=== PATIENT | male | born 1965 | race Asian ===

== ENCOUNTER 2022-05-05 15:07 | Outpatient (REF) | payer OTHER, SELFPAY ==
[2022-05-05 16:31] LABS: MANUAL DIFF FLAG NO
[2022-05-05 16:34] LABS: Basophils Absolute Auto 0.1 X10*3/uL (0.0-0.2); Basophils Percent Auto 0.7 % (0-2); Eosinophils Absolute Auto 0.1 X10*3/uL (0.0-0.4); Eosinophils Percent Auto 0.5 % (0-4); Hematocrit 39.8 % (42.0-52.0); Hemoglobin 13.2 g/dl (14.0-18.0); Imm Gran Abs Auto 0.09 X10*3/uL (0.00-0.03); Imm Gran Pct Auto 0.8 % (0.0-0.4); Lymphocytes Absolute Auto 2.4 X10*3/uL (1.2-4.9); Mean Corpuscular HGB Conc 33.2 g/dl (31.0-36.0); Mean Corpuscular Hemoglobin 28.8 pg (27.0-33.0); Mean Corpuscular Volume 86.9 fL (80.0-98.0); Mean Platelet Volume 8.2 fL (9.4-12.4); Monocytes Absolute Auto 0.8 X10*3/uL (0.1-1.2); Platelet Count 460 X10*3/uL (160-400); Red Blood Count 4.58 X10*6/uL (4.60-5.80); Red Cell Distribution Width 13.1 % (11.0-16.0); White Blood Count 11.5 X10*3/uL (4.8-10.8)
[2022-05-05 16:45] LABS: Appearance Urine Clear; Color Urine Yellow; Glucose Urine UA Negative (Negative); Leukocyte Esterase Urine Negative (Negative); Nitrite Urine Negative (Negative); Specific Gravity - Urine <= 1.005 (1.005-1.025); Urine Blood Negative (Negative); Urine Ketones Negative (Negative); Urine Protein Negative (Neg-Trace)
[2022-05-05 16:48] LABS: Bacteria Urine None Seen (None Seen); Hyaline Casts Urine 0-2 /LPF (0-2); RBC Urine 0-2 /HPF (0-2); Squamous Epithelial Cell Urine 0-2 /HPF (0-2); WBC Urine 0-5 /HPF (0-5)
[2022-05-05 16:48] LABS: Alanine Aminotransferase 27 U/L (0-40); Albumin Level 4.2 g/dL (3.5-5.0); Alkaline Phosphatase 112 U/L (39-117); Anion Gap 17 (12-20); Aspartate Amino Transferase 18 U/L (5-37); Bilirubin Total 0.4 mg/dL (0.0-1.0); Blood Urea Nitrogen 16 mg/dL (9-16); Calcium 9.3 mg/dL (8.4-10.2); Carbon Dioxide 24 mmol/L (22-29); Chloride 96 mmol/L (96-108); Cholesterol 163 mg/dL; Estimated Glomerular Filt Rate > 60; Glucose Fasting 85 mg/dL (60-99); HDL Cholesterol 39 mg/dL; LDL Cholesterol Calculated 101 mg/dl; Potassium 4.5 mmol/L (3.3-5.1); Sodium 132 mmol/L (135-145); Total Protein 7.8 g/dL (6.5-8.0); Triglycerides 119 mg/dL
[2022-05-05 17:08] LABS: PSA,Total (Free>4and<10) 0.83 ng/mL (0.00-4.00)
== END 2022-05-05 15:08 | disposition home or self-care (01) ==
LOC: HO.HMGCLDS 15:07
PROVIDERS: PCP Internal Medicine; Visit Provider Internal Medicine
DX: Z12.5 Encounter for screening for malignant neoplasm of prostate (principal); I10 Essential (primary) hypertension
CPT/HCPCS: 36415; 80053; 80061; 81001; 84153; 85025

== ENCOUNTER 2022-06-03 15:14 | Outpatient (REF) | payer OTHER, SELFPAY ==
[2022-06-03 16:20] LABS: MANUAL DIFF FLAG NO
[2022-06-03 16:25] LABS: Basophils Absolute Auto 0.1 X10*3/uL (0.0-0.2); Basophils Percent Auto 0.7 % (0-2); Eosinophils Absolute Auto 0.1 X10*3/uL (0.0-0.4); Eosinophils Percent Auto 0.5 % (0-4); Hematocrit 41.3 % (42.0-52.0); Hemoglobin 13.7 g/dl (14.0-18.0); Imm Gran Abs Auto 0.05 X10*3/uL (0.00-0.03); Imm Gran Pct Auto 0.5 % (0.0-0.4); Lymphocytes Percent Auto 20.4 % (20-40); Mean Corpuscular HGB Conc 33.2 g/dl (31.0-36.0); Mean Corpuscular Hemoglobin 28.2 pg (27.0-33.0); Mean Corpuscular Volume 85.2 fL (80.0-98.0); Mean Platelet Volume 8.3 fL (9.4-12.4); Monocytes Absolute Auto 0.5 X10*3/uL (0.1-1.2); Monocytes Percent Auto 4.9 % (2-11); Neutrophils Absolute Auto 7.2 x10*3/uL (2.0-8.3); Platelet Count 387 X10*3/uL (160-400); Red Blood Count 4.85 X10*6/uL (4.60-5.80); Red Cell Distribution Width 13.6 % (11.0-16.0); White Blood Count 9.9 X10*3/uL (4.8-10.8)
[2022-06-03 16:42] LABS: Anion Gap 18 (12-20); Blood Urea Nitrogen 29 mg/dL (9-16); Calcium 9.5 mg/dL (8.4-10.2); Carbon Dioxide 22 mmol/L (22-29); Chloride 98 mmol/L (96-108); Estimated Glomerular Filt Rate 57; Glucose Random 103 mg/dL (60-115); Iron 101 mcg/dL (45-160); Percent Iron Saturation 23 % (15-50); Potassium 4.1 mmol/L (3.3-5.1); Sodium 134 mmol/L (135-145); Total Iron Binding Capacity 431 mcg/dL (228-428); Unsaturated Iron Binding 330 ug/dL
[2022-06-03 17:16] LABS: Folate 9.7 ng/mL (> or = 4.0); Vitamin B12 403 pg/mL (200-900)
== END 2022-06-03 15:15 | disposition home or self-care (01) ==
LOC: HO.HMGCLDS 15:14
PROVIDERS: PCP Internal Medicine; Visit Provider Internal Medicine
DX: I10 Essential (primary) hypertension (principal); D64.9 Anemia, unspecified
CPT/HCPCS: 36415; 80048; 82607; 82746; 83540; 85025

== ENCOUNTER 2022-10-14 09:00 | Outpatient (REF) | payer OTHER, SELFPAY | END 2022-10-14 09:01 | disposition home or self-care (01) | LOC: HO.HMGCLDS 09:00 | PROVIDERS: PCP Internal Medicine; Visit Provider Internal Medicine | DX: Z13.89 Encounter for screening for other disorder (principal) ==

== ENCOUNTER 2023-10-20 13:24 | Outpatient (AMB) | payer OTHER, SELFPAY ==
--- NOTE | 2023-10-20 13:28 | A.OFFPC_ITS ---
Vital Signs 10/20/23 13:30 Height 6 ft Weight 208 lb BMI 28.2 BP 120/80 Blood Pressure Location Rt brachial Position Sitting Pulse 83 Pulse Source Pulse Oximeter Pulse Oximetry (%) 98 Oxygen Delivery Method Room Air Intake Visit Reasons: PE Intake Note: Pt is here today for his PE: Lasdt colonoscopy 08/25/22 Allergies No Known Allergies Allergy (Verified 10/20/23 13:29) Medication List - Last Reconciled 10/20/23 by Alla Sorto MD amlodipine 2.5 mg PO DAILY amlodipine 5 mg PO DAILY 90 days clobetasol 0.05% 1 appl topical DAILY mirtazapine 30 mg PO DAILY omeprazole 40 mg PO DAILY Tobacco use date assessed: 10/20/23 Dental Screening Dental Screen Date: 10/20/23 Did you have a dental visit in the last 12 months?: No Was dental information given to patient?: No HPI PE HPI Details Patient presents for PE. He started Humira last month for mild diffuse colitis and follows up with the statistician applied Dr. Jerez. [facility] Medical History (Updated 10/20/23 @ 14:13 by Alla Sorto MD) HTN (hypertension) Difficulty sleeping Depression, major, recurrent Acne vulgaris LFT elevation Hypertension, essential Ulcerative colitis Surgical History No pertinent past surgical history Family History Father Alzheimer's disease Dementia Stroke Mother No problems noted. Sister No problems noted. 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 1. Little interest or pleasure in doing things: not at all 2. Feeling down, depressed, or hopeless: not at all 3. Trouble falling or staying asleep, or sleeping too much: not at all 4. Feeling tired or having little energy: not at all 5. Poor appetite or overeating: not at all 6. Feeling bad about yourself - or that you are a failure or have let yourself or your family down: not at all 7. Trouble concentrating on things, such as reading the newspaper or watching television: not at all 8. Moving or speaking so slowly that other people could have noticed. Or the opposite - being so fidgety or restless that you have been moving around a lot more than usual: not at all 9. Thoughts that you would be better off or of hurting yourself in some way: not at all Total score: 0 Source: Developed by Drs. Gerry Cabrales, Lexy Meade, Bob Yun and colleagues, with an educational flavia from [email or web address]. Thrive Questionnaire Date Thrive assessed: 10/20/23 I am a: Patient What is your living situation today?: I have a steady place to live Within the past 12 months, did the food you bought not last and you didn't have the money to get more?: Never true Within the past 12 months, did you worry whether your food would run out before you got money to buy more?: Never true Do you have trouble paying for medicines?: No Do you have trouble getting transportation to medical appointments?: No Do you have trouble paying your heating and electricity bill?: No Do you have trouble taking care of your child, family member or friend?: No Do you have trouble with day-to-day activities such as bathing, preparing meals, shopping, managing finances, etc.?: No Are you currently unemployed and looking for a job?: No Are you interested in more education?: No THRIVE Score: 0 AUDIT C Alcohol Use Questionnaire (AUDIT-C) 1. How often do you have a drink containing alcohol?: 2-4 times a month 2. How many drinks containing alcohol do you have on a typical day when you are drinking?: 1 or 2 3. How often do you have six or more drinks on one occasion?: Never Total Score: 2 PILI-7 AMB Questionnaire PILI-7 Date PILI - 7 assessed: 10/20/23 Feeling nervous, anxious, or on edge: 0 = Not at all Not being able to stop or control worryin = Not at all Worrying too much about different things: 0 = Not at all Trouble relaxin = Not at all Being so restless that it is hard to sit still: 0 = Not at all Becoming easily annoyed or irritable: 0 = Not at all Feeling afraid as if something awful might happen: 0 = Not at all Total PILI-7 score (0-4 normal; 5-9 mild; 10-14 moderate; 15-21 severe): 0 Source: Developed by Drs. Gerry Cabrales, Lexy Meade, Bob Yun and colleagues, with an educational flavia from [email or web address]. Review of Systems Const All systems reviewed & are unremarkable except as noted in HPI and below Reports no additional complaints Eyes Reports no additional complaints ENT Reports no additional complaints Card Reports no additional complaints Resp Reports no additional complaints GI Reports no additional complaints Reports no additional complaints Physical exam (Primary Care) Vital Signs: Last Vital Signs Pulse 83 10/20/23 13:30 BP 142/80 H 10/20/23 13:30 Pulse Ox 98 10/20/23 13:30 Oxygen Delivery Method Room Air 10/20/23 13:30 BMI result Body Mass Index 28.2 Tobacco/Smoking Status: Tobacco use Status Tobacco use date assessed 10/20/23 10/20/23 13:33 Patient Tobacco Use Status Never used Tobacco 10/20/23 13:33 e-Cigarette/Vaping Use Never Used 10/20/23 13:33 PHQ-9: PHQ-9 Score PHQ-9: Total score 0 10/20/23 13:37 Thrive Assessment: Date of Thrive Assessment Date Thrive assessed 10/20/23 10/20/23 13:37 Const General: no acute distress HENMT Head: Yes normal to inspection General nose exam: Normal external nose present Mouth: Normal oral and palatal mucosa present Eyes General: appearance normal, both eyes and all related structures Neck Neck: Yes no lymphadenopathy and Yes supple Resp Effort & Inspection: normal respiratory effort Auscultation: clear to auscultation bilaterally Cardio Rhythm: regular rhythm Heart sounds: S1 normal heart sound present and S2 normal heart sound present GI Inspection: Yes normal to inspection Palpation (GI): Soft to palpation Percussion: Yes normal to percussion Auscultation: normal bowel sounds Assessment and Plan Assessment & Plan (1) HTN (hypertension): Code(s): I10 - Essential (primary) hypertension Plan: Continue amlodipine (2) Annual physical exam: Code(s): Z00.00 - Encounter for general adult medical examination without abnormal findings Plan: Well-balanced diet regular physical activity discussed with the patient. He will return for fasting blood work (3) Depression, major, recurrent: Comment: controlled Mirtazapine Code(s): F33.9 - Major depressive disorder, recurrent, unspecified Plan: Continue mirtazapine (4) Bilateral chronic knee pain: Comment: seen by [facility] Code(s): M25.561 - Pain in right knee; M25.562 - Pain in left knee; G89.29 - Other chronic pain Plan: REFER FOR PHYSICAL THERAPY (5) Ulcerative colitis: Comment: Dr. Jerez, colonoscopy 08/2022, mild diffuse colitis started Humira 09/24 Code(s): K51.90 - Ulcerative colitis, unspecified, without complications Plan: Follow-up with GI Orders: Orders Comprehensive [place]. Panel Fast Today F33.9 - Major depressive disorder, recurrent, unspecified, I10 - Essential (primary) hypertension, Z00.00 - Encounter for general adult medical examination without abnormal findings PSA,Total (Free>4and<10) Today F33.9 - Major depressive disorder, recurrent, unspecified, I10 - Essential (primary) hypertension, Z00.00 - Encounter for general adult medical examination without abnormal findings UA w Microscopic Today F33.9 - Major depressive disorder, recurrent, unspecified, I10 - Essential (primary) hypertension, Z00.00 - Encounter for general adult medical examination without abnormal findings PSA,Total (Free>4and<10) 1 Year D64.9 - Anemia, unspecified, I10 - Essential (primary) hypertension, K51.90 - Ulcerative colitis, unspecified, without complications, Z00.00 - Encounter for general adult medical examination without abnormal findings Complete Blood Count Auto Diff Today F33.9 - Major depressive disorder, recurrent, unspecified, I10 - Essential (primary) hypertension, Z00.00 - Encounter for general adult medical examination without abnormal findings Lipid Panel Today F33.9 - Major depressive disorder, recurrent, unspecified, I10 - Essential (primary) hypertension, Z00.00 - Encounter for general adult medical examination without abnormal findings PT Evaluation and Treatment Today G89.29 - Other chronic pain, M25.561 - Pain in right knee, M25.562 - Pain in left knee Comprehensive [place]. Panel Fast 1 Year D64.9 - Anemia, unspecified, I10 - Essential (primary) hypertension, K51.90 - Ulcerative colitis, unspecified, without complications, Z00.00 - Encounter for general adult medical examination without abnormal findings Lipid Panel 1 Year D64.9 - Anemia, unspecified, I10 - Essential (primary) hypertension, K51.90 - Ulcerative colitis, unspecified, without complications, Z00.00 - Encounter for general adult medical examination without abnormal findings Complete Blood Count Auto Diff 1 Year D64.9 - Anemia, unspecified, I10 - Essential (primary) hypertension, K51.90 - Ulcerative colitis, unspecified, without complications, Z00.00 - Encounter for general adult medical examination without abnormal findings UA w Microscopic 1 Year D64.9 - Anemia, unspecified, I10 - Essential (primary) hypertension, K51.90 - Ulcerative colitis, unspecified, without complications, Z00.00 - Encounter for general adult medical examination without abnormal findings Medications: Changed From mirtazapine 15 mg (1/2 x 30 mg) PO DAILY 45 tabs 3RF To mirtazapine 30 mg PO DAILY 90 tabs 3RF Refilled omeprazole 40 mg PO DAILY 90 caps 3RF amlodipine take with 5 mg of Amlodipine 2.5 mg PO DAILY 90 tabs 3RF Coding Level of Care Code Est Pt Prev Care 40-64y(22362) Diagnoses HTN (hypertension) I10 Annual physical exam Z00.00 Depression, major, recurrent F33.9 Bilateral chronic knee pain M25.561; M25.562; G89.29 Ulcerative colitis K51.90
[2023-10-20 13:30] VITALS: BP 120/80; PULSE 83; O2SAT 98; BMI 28.2
== END 2023-10-20 14:13 | disposition home or self-care (01) ==
PROVIDERS: PCP Internal Medicine; Visit Provider Internal Medicine
DX: Z00.00 Encounter for general adult medical examination without abnormal findings (principal); F33.9 Major depressive disorder, recurrent, unspecified; K51.90 Ulcerative colitis, unspecified, without complications; I10 Essential (primary) hypertension; M25.561 Pain in right knee; M25.562 Pain in left knee; G89.29 Other chronic pain
CPT/HCPCS: 99396

== ENCOUNTER 2024-02-20 10:47 | Outpatient (REF) | payer OTHER, SELFPAY ==
[2024-02-20 13:10] LABS: MANUAL DIFF FLAG NO
[2024-02-20 13:18] LABS: Appearance Urine Clear; Color Urine Yellow; Glucose Urine UA Negative (Negative); Leukocyte Esterase Urine Negative (Negative); Nitrite Urine Negative (Negative); PH 6.5 (5.0-9.0); Specific Gravity - Urine 1.015 (1.005-1.025); Urine Blood Negative (Negative); Urine Ketones Negative (Negative); Urine Protein Negative (Neg-Trace)
[2024-02-20 13:25] LABS: Bacteria Urine None Seen (None Seen); Hyaline Casts Urine 0-2 /LPF (0-2); RBC Urine 0-2 /HPF (0-2); Squamous Epithelial Cell Urine 0-2 /HPF (0-2); WBC Urine 0-5 /HPF (0-5)
[2024-02-20 13:29] LABS: Basophils Absolute Auto 0.1 X10*3/uL (0.0-0.2); Eosinophils Absolute Auto 0.1 X10*3/uL (0.0-0.4); Hematocrit 40.4 % (42.0-52.0); Hemoglobin 13.9 g/dl (14.0-18.0); Imm Gran Abs Auto 0.02 X10*3/uL (0.00-0.03); Imm Gran Pct Auto 0.4 % (0.0-0.4); Lymphocytes Absolute Auto 1.6 X10*3/uL (1.2-4.9); Lymphocytes Percent Auto 31.8 % (20-40); Mean Corpuscular HGB Conc 34.4 g/dl (31.0-36.0); Mean Corpuscular Hemoglobin 28.6 pg (27.0-33.0); Mean Corpuscular Volume 83.1 fL (80.0-98.0); Mean Platelet Volume 8.7 fL (9.4-12.4); Monocytes Absolute Auto 0.5 X10*3/uL (0.1-1.2); Monocytes Percent Auto 9.1 % (2-11); Neutrophils Absolute Auto 2.8 x10*3/uL (2.0-8.3); Neutrophils Percent Auto 56.7 % (45-73); Platelet Count 386 X10*3/uL (160-400); Red Blood Count 4.86 X10*6/uL (4.60-5.80); Red Cell Distribution Width 14.7 % (11.0-16.0); White Blood Count 4.9 X10*3/uL (4.8-10.8)
[2024-02-20 13:51] LABS: Alanine Aminotransferase 73 U/L (0-40); Albumin Level 4.4 g/dL (3.5-5.0); Alkaline Phosphatase 94 U/L (39-117); Anion Gap 14 (12-20); Aspartate Amino Transferase 39 U/L (5-37); Bilirubin Total 0.4 mg/dL (0.0-1.0); Blood Urea Nitrogen 12 mg/dL (9-16); Carbon Dioxide 21 mmol/L (22-29); Chloride 100 mmol/L (96-108); Cholesterol 179 mg/dL (<200); Estimated Glomerular Filt Rate > 60; Glucose Fasting 103 mg/dL (60-99); HDL Cholesterol 45 mg/dL (>40); LDL Cholesterol Calculated 85 mg/dL (<100); Potassium 4.5 mmol/L (3.3-5.1); Sodium 130 mmol/L (135-145); Total Protein 7.8 g/dL (6.5-8.0); Triglycerides 245 mg/dL (<150)
[2024-02-20 13:56] LABS: PSA,Total (Free>4and<10) 0.92 ng/mL (0.00-4.00)
== END 2024-02-20 10:48 | disposition home or self-care (01) ==
LOC: HO.HMGCLDS 10:47
PROVIDERS: PCP Internal Medicine; Visit Provider Internal Medicine
DX: Z00.00 Encounter for general adult medical examination without abnormal findings (principal); I10 Essential (primary) hypertension; F33.9 Major depressive disorder, recurrent, unspecified
CPT/HCPCS: 36415; 80053; 80061; 81001; 84153; 85025

== ENCOUNTER 2024-02-23 13:57 | Outpatient (AMB) | payer OTHER, SELFPAY ==
--- NOTE | 2024-02-23 14:26 | MHC.PC.OV ---
Vital Signs 02/23/24 14:27 Height 6 ft Weight 210 lb BMI 28.5 BP 136/88 Blood Pressure Location Rt radial Position Sitting Pulse 91 Pulse Source Pulse Oximeter Pulse Oximetry (%) 95 Oxygen Delivery Method Room Air Intake Visit Reasons: followup Intake Note: Pt is here today for a follow up visit. Pt states that he has low energy. Allergies No Known Allergies Allergy (Verified 02/23/24 14:29) Medication List - Last Reconciled 02/23/24 by Alla Sorto MD amlodipine 2.5 mg PO DAILY amlodipine 5 mg PO DAILY 90 days clobetasol 0.05% 1 appl topical DAILY mirtazapine 30 mg PO DAILY omeprazole 40 mg PO DAILY Tobacco use date assessed: 02/23/24 Dental Screening Dental Screen Date: 02/23/24 Did you have a dental visit in the last 12 months?: Yes Did you have a dental problem in the last 6 months where you did not have access to dental care?: No Was dental information given to patient?: Patient has dentist HPI followup HPI Details Pt presents for f/u HTN. Patient reports feeling tired but worse when exercising. He can not exercise for more than 20 minutes because of general fatigue and legs heaviness. He denies chest pain, shortness of breath, palpitations while exercising but occasionally has some discomfort in the chest at rest. Patient has not been using CPAP machine for obstructive sleep apnea, [facility] Medical History (Updated 02/23/24 @ 15:32 by Alla Sorto MD) HTN (hypertension) Difficulty sleeping Depression, major, recurrent Acne vulgaris LFT elevation Hypertension, essential Ulcerative colitis Surgical History No pertinent past surgical history Family History Father Alzheimer's disease Dementia Stroke Mother No problems noted. Sister No problems noted. 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, Housing: Apartment Alcohol intake: current Alcohol intake frequency: a few times a week Patient Tobacco Use Status: Never used Tobacco e-Cigarette/Vaping Use: Never Used service: No Current occupational status: employed Cognitive needs: No Hearing needs: No Vision needs: Yes Questionnaire Thrive Questionnaire Date Thrive assessed: 10/20/23 I am a: Patient What is your living situation today?: I choose not to answer this question Within the past 12 months, did the food you bought not last and you didn't have the money to get more?: I choose not to answer this question Within the past 12 months, did you worry whether your food would run out before you got money to buy more?: I choose not to answer this question Do you have trouble paying for medicines?: I choose not to answer this question Do you have trouble getting transportation to medical appointments?: I choose not to answer this question Do you have trouble paying your heating and electricity bill?: I choose not to answer this question Do you have trouble taking care of your child, family member or friend?: I choose not to answer this question Do you have trouble with day-to-day activities such as bathing, preparing meals, shopping, managing finances, etc.?: I choose not to answer this question Are you currently unemployed and looking for a job?: I choose not to answer this question Are you interested in more education?: I choose not to answer this question Please select the resources that you would like help with: Housing/Correction Currently or been in a relationship where the following occur: I choose not to answer THRIVE Score: 0 AUDIT C Alcohol Use Questionnaire (AUDIT-C) 1. How often do you have a drink containing alcohol?: Never 3. How often do you have six or more drinks on one occasion?: Never Total Score: 0 PILI-7 AMB Questionnaire PILI-7 Date PILI - 7 assessed: 10/20/23 Feeling nervous, anxious, or on edge: 0 = Not at all Not being able to stop or control worryin = Not at all Worrying too much about different things: 0 = Not at all Trouble relaxin = Not at all Being so restless that it is hard to sit still: 0 = Not at all Becoming easily annoyed or irritable: 0 = Not at all Feeling afraid as if something awful might happen: 0 = Not at all Total PILI-7 score (0-4 normal; 5-9 mild; 10-14 moderate; 15-21 severe): 0 Source: Developed by Rip Duranet B.W. Deshaun, Bob Yun and colleagues, with an educational flavia from [employer]. Review of Systems Const All systems reviewed & are unremarkable except as noted in HPI and below Eyes Reports no additional complaints ENT Reports no additional complaints Card Reports no additional complaints Resp Reports no additional complaints GI Reports no additional complaints Reports no additional complaints Physical exam (Primary Care) Vital Signs: Last Vital Signs Pulse 91 02/23/24 14:27 Pulse Ox 95 02/23/24 14:27 Oxygen Delivery Method Room Air 02/23/24 14:27 BMI result Body Mass Index 28.5 Tobacco/Smoking Status: Tobacco use Status Tobacco use date assessed 02/23/24 02/23/24 14:32 Patient Tobacco Use Status Never used Tobacco 02/23/24 14:32 e-Cigarette/Vaping Use Never Used 02/23/24 14:32 Thrive Assessment: Date of Thrive Assessment Date Thrive assessed 10/20/23 02/23/24 14:32 Currently or been in a relationship where the following occur: I choose not to answer Const General: no acute distress HENMT Head: Yes normal to inspection Eyes General: appearance normal, both eyes and all related structures Resp Effort & Inspection: normal respiratory effort Auscultation: clear to auscultation bilaterally Cardio Rhythm: regular rhythm Heart sounds: S1 normal heart sound present and S2 normal heart sound present GI Inspection: Yes normal to inspection Palpation (GI): Soft to palpation Percussion: Yes normal to percussion Auscultation: normal bowel sounds Assessment and Plan Assessment & Plan (1) Sleep apnea: Code(s): G47.30 - Sleep apnea, unspecified Plan: check sleep study (2) HTN (hypertension): Code(s): I10 - Essential (primary) hypertension Plan: increase Amlodipine to 10 mg (3) Hyponatremia: Code(s): E87.1 - Hypo-osmolality and hyponatremia Plan: Fluid restriction to less than 48 oz daily discussed with the patient, check comprehensive panel in 3 weeks (4) Angina at rest: Code(s): I20.89 - Other forms of angina pectoris Plan: Schedule a stress test to evaluate for ischemia (5) Knee pain, bilateral: Code(s): M25.561 - Pain in right knee; M25.562 - Pain in left knee Plan: Referred to physical therapy Orders: Orders CA stress test Today I10 - Essential (primary) hypertension, I20.89 - Other forms of angina pectoris NM cardiolite stress test Today E87.1 - Hypo-osmolality and hyponatremia, G47.30 - Sleep apnea, unspecified, I10 - Essential (primary) hypertension PT Evaluation and Treatment Today M25.561 - Pain in right knee, M25.562 - Pain in left knee Comprehensive [place]. Panel 1 Month E87.1 - Hypo-osmolality and hyponatremia, G47.30 - Sleep apnea, unspecified, I10 - Essential (primary) hypertension Medications: New amlodipine 10 mg PO DAILY 90 tabs 0RF Discontinued amlodipine take with 5 mg of Amlodipine Discontinued Reason: Doctor's Order 2.5 mg PO DAILY 90 tabs 3RF amlodipine Discontinued Reason: Doctor's Order 5 mg PO DAILY 90 days 90 tabs 3RF I10 - Essential (primary) hypertension Coding Level of Care Code Est Pt Level 4 (16363) Diagnoses Sleep apnea G47.30 HTN (hypertension) I10 Hyponatremia E87.1 Angina at rest I20.89 Knee pain, bilateral M25.561; M25.562
[2024-02-23 14:27] VITALS: BP 136/88; PULSE 91; O2SAT 95; BMI 28.5
== END 2024-02-23 15:37 | disposition home or self-care (01) ==
PROVIDERS: PCP Internal Medicine; Visit Provider Internal Medicine
DX: G47.30 Sleep apnea, unspecified (principal); I10 Essential (primary) hypertension; E87.1 Hypo-osmolality and hyponatremia; I20.89 Other forms of angina pectoris; M25.561 Pain in right knee; M25.562 Pain in left knee
CPT/HCPCS: 99214

== ENCOUNTER 2024-03-16 11:57 | Outpatient (AMB) | payer OTHER, SELFPAY ==
[2024-03-16 12:00] VITALS: BP 132/86; PULSE 84; O2SAT 96; BMI 28.1
--- NOTE | 2024-03-16 12:00 | A.OFFPC_ITS ---
Vital Signs 03/16/24 12:00 Height 6 ft Weight 207 lb 4 oz BMI 28.1 BP 132/86 Blood Pressure Location Rt brachial Position Sitting Pulse 84 Pulse Source Pulse Oximeter Pulse Oximetry (%) 96 Oxygen Delivery Method Room Air Intake Visit Reasons: follow up Allergies No Known Allergies Allergy (Verified 03/16/24 12:04) Medication List - Last Reconciled 03/16/24 by Alla Sorto MD amlodipine 10 mg PO DAILY clobetasol 0.05% 1 appl topical DAILY mirtazapine 30 mg PO DAILY omeprazole 40 mg PO DAILY Tobacco use date assessed: 03/16/24 Dental Screening Dental Screen Date: 03/16/24 Did you have a dental visit in the last 12 months?: No Did you have a dental problem in the last 6 months where you did not have access to dental care?: No Was dental information given to patient?: Patient has dentist HPI follow up HPI Details Patient presents for the follow-up for hypertension chronic GERD anxiety with depression, stable on current medications [facility] Medical History (Updated 03/16/24 @ 12:43 by Alla Sorto MD) HTN (hypertension) Difficulty sleeping Depression, major, recurrent Acne vulgaris LFT elevation Hypertension, essential Ulcerative colitis Surgical History No pertinent past surgical history Family History Father Alzheimer's disease Dementia Stroke Mother No problems noted. Sister No problems noted. 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, Housing: Apartment Alcohol intake: current Alcohol intake frequency: a few times a week Patient Tobacco Use Status: Never used Tobacco e-Cigarette/Vaping Use: Never Used service: No Current occupational status: employed Cognitive needs: No Hearing needs: No Vision needs: Yes Questionnaire Thrive Questionnaire Date Thrive assessed: 03/16/24 I am a: Patient What is your living situation today?: I choose not to answer this question Within the past 12 months, did the food you bought not last and you didn't have the money to get more?: I choose not to answer this question Within the past 12 months, did you worry whether your food would run out before you got money to buy more?: I choose not to answer this question Do you have trouble paying for medicines?: I choose not to answer this question Do you have trouble getting transportation to medical appointments?: I choose not to answer this question Do you have trouble paying your heating and electricity bill?: I choose not to answer this question Do you have trouble taking care of your child, family member or friend?: I choose not to answer this question Do you have trouble with day-to-day activities such as bathing, preparing meals, shopping, managing finances, etc.?: I choose not to answer this question Are you currently unemployed and looking for a job?: I choose not to answer this question Are you interested in more education?: I choose not to answer this question Please select the resources that you would like help with: None Currently or been in a relationship where the following occur: I choose not to answer THRIVE Score: 0 AUDIT C Alcohol Use Questionnaire (AUDIT-C) 1. How often do you have a drink containing alcohol?: Never 3. How often do you have six or more drinks on one occasion?: Never Total Score: 0 Score Reviewed/Action Taken: Yes PILI-7 AMB Questionnaire PILI-7 Date PILI - 7 assessed: 03/16/24 Feeling nervous, anxious, or on edge: 0 = Not at all Not being able to stop or control worryin = Not at all Worrying too much about different things: 0 = Not at all Trouble relaxin = Not at all Being so restless that it is hard to sit still: 0 = Not at all Becoming easily annoyed or irritable: 0 = Not at all Feeling afraid as if something awful might happen: 0 = Not at all Total PILI-7 score (0-4 normal; 5-9 mild; 10-14 moderate; 15-21 severe): 0 Source: Developed by Drs. Gerry Cabrales, Lexy Meade, Bob Yun and colleagues, with an educational flavia from [employer]. PILI-7 Assessment Billing PILI-7 Assessment Tool: PILI-7 Assessment 01568 Review of Systems Const All systems reviewed & are unremarkable except as noted in HPI and below Card Reports no additional complaints Resp Reports no additional complaints GI Reports no additional complaints Reports no additional complaints Physical exam (Primary Care) Vital Signs: Last Vital Signs Pulse 84 03/16/24 12:00 BP 132/86 03/16/24 12:00 Pulse Ox 96 03/16/24 12:00 Oxygen Delivery Method Room Air 03/16/24 12:00 BMI result Body Mass Index 28.1 Tobacco/Smoking Status: Tobacco use Status Tobacco use date assessed 03/16/24 03/16/24 12:04 Patient Tobacco Use Status Never used Tobacco 03/16/24 12:00 e-Cigarette/Vaping Use Never Used 03/16/24 12:00 Thrive Assessment: Date of Thrive Assessment Date Thrive assessed 03/16/24 03/16/24 12:04 Currently or been in a relationship where the following occur: I choose not to answer Const General: no acute distress Eyes General: appearance normal, both eyes and all related structures Resp Effort & Inspection: normal respiratory effort Auscultation: clear to auscultation bilaterally Cardio Rhythm: regular rhythm Heart sounds: S1 normal heart sound present and S2 normal heart sound present Assessment and Plan Assessment & Plan (1) HTN (hypertension): Code(s): I10 - Essential (primary) hypertension Plan: Continue amlodipine (2) Hyponatremia: Comment: SIADH Code(s): E87.1 - Hypo-osmolality and hyponatremia Plan: Continue fluid restriction monitor sodium level (3) Depression, major, recurrent: Comment: controlled Mirtazapine Code(s): F33.9 - Major depressive disorder, recurrent, unspecified Plan: Continue Mirtazapine Orders: Orders Lipid Panel 3 Months E87.1 - Hypo-osmolality and hyponatremia, I10 - Essential (primary) hypertension Comprehensive [place]. Panel Fast 3 Months E87.1 - Hypo-osmolality and hyponatremia, I10 - Essential (primary) hypertension Complete Blood Count Auto Diff 3 Months E87.1 - Hypo-osmolality and hyponatremia, I10 - Essential (primary) hypertension Hepatitis B,C Profile 3 Months E87.1 - Hypo-osmolality and hyponatremia, I10 - Essential (primary) hypertension Coding Level of Care Code Est Pt Level 4 (82942) Diagnoses HTN (hypertension) I10 Hyponatremia E87.1 Depression, major, recurrent F33.9 Additional Codes PILI-7 Assessment Billing - PILI-7 Assessment Tool: PILI-7 Assessment [id number] ([id number])
== END 2024-03-16 12:38 | disposition home or self-care (01) ==
PROVIDERS: PCP Internal Medicine; Visit Provider Internal Medicine
DX: I10 Essential (primary) hypertension (principal); E87.1 Hypo-osmolality and hyponatremia; F33.9 Major depressive disorder, recurrent, unspecified
CPT/HCPCS: 99214

== ENCOUNTER 2024-06-20 11:50 | Outpatient (AMB) | payer OTHER, SELFPAY ==
[2024-06-20 12:02] VITALS: BP 132/84; PULSE 86; O2SAT 97; BMI 29.0
--- NOTE | 2024-06-20 12:02 | A.OFFPC_ITS ---
Vital Signs 06/20/24 12:02 Height 6 ft Weight 214 lb BMI 29.0 BP 132/84 Blood Pressure Location Lt brachial Position Sitting Pulse 86 Pulse Source Pulse Oximeter Pulse Oximetry (%) 97 Intake Visit Reasons: 3 month follow up Intake Note: pt is here for 3 month follow up Dot Compliance Coordinator Required: No Accompanied by: Self / Same As Patient Allergies No Known Allergies Allergy (Verified 06/20/24 12:06) Medication List - Last Reconciled 06/20/24 by Alla Sorto MD amlodipine 10 mg PO DAILY clobetasol 0.05% 1 appl topical DAILY mirtazapine 30 mg PO DAILY omeprazole 40 mg PO DAILY Tobacco use date assessed: 03/16/24 Dental Screening Dental Screen Date: 03/16/24 HPI 3 month follow up HPI Details Patient presents for the follow-up on hypertension chronic GERD and d epression stable on current medications. He complains of chronic right knee pain and likes to reschedule his appointment for physical therapy. [facility] Medical History HTN (hypertension) Difficulty sleeping Depression, major, recurrent Acne vulgaris LFT elevation Hypertension, essential Ulcerative colitis Surgical History No pertinent past surgical history Family History Father Alzheimer's disease Dementia Stroke Mother No problems noted. Sister No problems noted. 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, Housing: Apartment Alcohol intake: current Alcohol intake frequency: a few times a week Patient Tobacco Use Status: Never used Tobacco e-Cigarette/Vaping Use: Never Used service: No Current occupational status: employed Cognitive needs: No Hearing needs: No Vision needs: Yes Questionnaire Thrive Questionnaire Date Thrive assessed: 06/20/24 I am a: Patient What is your living situation today?: I choose not to answer this question Within the past 12 months, did the food you bought not last and you didn't have the money to get more?: I choose not to answer this question Within the past 12 months, did you worry whether your food would run out before you got money to buy more?: I choose not to answer this question Do you have trouble paying for medicines?: I choose not to answer this question Do you have trouble getting transportation to medical appointments?: I choose not to answer this question Do you have trouble paying your heating and electricity bill?: I choose not to answer this question Do you have trouble taking care of your child, family member or friend?: I choose not to answer this question Do you have trouble with day-to-day activities such as bathing, preparing meals, shopping, managing finances, etc.?: I choose not to answer this question Are you currently unemployed and looking for a job?: I choose not to answer this question Are you interested in more education?: I choose not to answer this question Please select the resources that you would like help with: None Currently or been in a relationship where the following occur: I choose not to answer THRIVE Score: 0 PILI-7 AMB Questionnaire PILI-7 Date PILI - 7 assessed: 03/16/24 Source: Developed by Drs. Gerry Cabrales, Lexy Meade, Bob Yun and colleagues, with an educational flavia from [employer]. Review of Systems Const All systems reviewed & are unremarkable except as noted in HPI and below ENT Reports no additional complaints Card Reports no additional complaints Resp Reports no additional complaints GI Reports no additional complaints Reports no additional complaints Physical exam (Primary Care) Vital Signs: Last Vital Signs Pulse 86 06/20/24 12:02 BP 132/84 06/20/24 12:02 Pulse Ox 97 06/20/24 12:02 BMI result Body Mass Index 29.0 Tobacco/Smoking Status: Tobacco use Status Tobacco use date assessed 03/16/24 06/20/24 12:02 Patient Tobacco Use Status Never used Tobacco 06/20/24 12:02 e-Cigarette/Vaping Use Never Used 06/20/24 12:02 Thrive Assessment: Date of Thrive Assessment Date Thrive assessed 06/20/24 06/20/24 12:11 Currently or been in a relationship where the following occur: I choose not to answer Const General: no acute distress HENMT Head: Yes normal to inspection Ears: hearing grossly normal bilaterally Neck Neck: Yes supple Resp Effort & Inspection: normal respiratory effort Auscultation: clear to auscultation bilaterally Cardio Rhythm: regular rhythm Heart sounds: S1 normal heart sound present and S2 normal heart sound present Coding Level of Care Code Est Pt Level 4 (01847) Diagnoses Right knee pain M25.561 Hyponatremia E87.1 HTN (hypertension) I10 Depression, major, recurrent F33.9 Assessment & Plan Assessment & Plan (1) Right knee pain: Code(s): M25.561 - Pain in right knee Category: Medical Plan: refer to PT (2) Hyponatremia: Comment: SIADH Code(s): E87.1 - Hypo-osmolality and hyponatremia Category: Medical Plan: Continue fluid restriction to 48 oz a day patient will return for fasting blood work this week (3) HTN (hypertension): Code(s): I10 - Essential (primary) hypertension Category: Medical Plan: Continue amlodipine (4) Depression, major, recurrent: Comment: controlled Mirtazapine Code(s): F33.9 - Major depressive disorder, recurrent, unspecified Category: Medical Plan: Continue mirtazapine Orders: Orders Comprehensive Met. Panel Today D64.9 - Anemia, unspecified, E87.1 - Hypo- osmolality and hyponatremia, I10 - Essential (primary) hypertension PT Evaluation and Treatment Today M25.561 - Pain in right knee Lipid Panel Today D64.9 - Anemia, unspecified, E87.1 - Hypo-osmolality and hyponatremia, I10 - Essential (primary) hypertension Complete Blood Count Auto Diff Today E87.1 - Hypo-osmolality and hyponatremia, I10 - Essential (primary) hypertension, R79.89 - Other specified abnormal findings of blood chemistry Hepatitis B,C Profile Today E87.1 - Hypo-osmolality and hyponatremia, I10 - Essential (primary) hypertension, R79.89 - Other specified abnormal findings of blood chemistry TSH reflex Free T4 Today E87.1 - Hypo-osmolality and hyponatremia, I10 - Essential (primary) hypertension, R79.89 - Other specified abnormal findings of blood chemistry
== END 2024-06-20 12:46 | disposition home or self-care (01) ==
PROVIDERS: PCP Internal Medicine; Visit Provider Internal Medicine
DX: M25.561 Pain in right knee (principal); E87.1 Hypo-osmolality and hyponatremia; I10 Essential (primary) hypertension; F33.9 Major depressive disorder, recurrent, unspecified

== ENCOUNTER → 2024-06-20 11:50 | Outpatient (BNVA) | payer OTHER, SELFPAY | PROVIDERS: PCP Internal Medicine; Visit Provider Internal Medicine | DX: M25.561 Pain in right knee (principal); E87.1 Hypo-osmolality and hyponatremia; I10 Essential (primary) hypertension; F33.9 Major depressive disorder, recurrent, unspecified | CPT/HCPCS: 99212 ==

== ENCOUNTER 2024-06-29 11:17 | Outpatient (REF) | payer OTHER, SELFPAY ==
[2024-06-29 13:38] LABS: MANUAL DIFF FLAG NO
[2024-06-29 13:46] LABS: Basophils Absolute Auto 0.1 X10*3/uL (0.0-0.2); Basophils Percent Auto 0.8 % (0-2); Eosinophils Absolute Auto 0.1 X10*3/uL (0.0-0.4); Eosinophils Percent Auto 2.3 % (0-4); Hematocrit 39.9 % (42.0-52.0); Hemoglobin 13.6 g/dl (14.0-18.0); Imm Gran Abs Auto 0.04 X10*3/uL (0.00-0.03); Imm Gran Pct Auto 0.7 % (0.0-0.4); Lymphocytes Absolute Auto 2.3 X10*3/uL (1.2-4.9); Mean Corpuscular HGB Conc 34.1 g/dl (31.0-36.0); Mean Corpuscular Hemoglobin 28.2 pg (27.0-33.0); Mean Corpuscular Volume 82.6 fL (80.0-98.0); Mean Platelet Volume 8.4 fL (9.4-12.4); Monocytes Absolute Auto 0.6 X10*3/uL (0.1-1.2); Monocytes Percent Auto 9.7 % (2-11); Neutrophils Percent Auto 49.5 % (45-73); Platelet Count 346 X10*3/uL (160-400); Red Blood Count 4.83 X10*6/uL (4.60-5.80); Red Cell Distribution Width 14.6 % (11.0-16.0); White Blood Count 6.1 X10*3/uL (4.8-10.8)
[2024-06-29 14:15] LABS: Alanine Aminotransferase 134 U/L (0-40); Albumin Level 4.3 g/dL (3.5-5.0); Alkaline Phosphatase 80 U/L (39-117); Anion Gap 15 (12-20); Aspartate Amino Transferase 57 U/L (5-37); Bilirubin Total 0.3 mg/dL (0.0-1.0); Blood Urea Nitrogen 19 mg/dL (9-16); Calcium 8.6 mg/dL (8.4-10.2); Carbon Dioxide 23 mmol/L (22-29); Chloride 102 mmol/L (96-108); Cholesterol 165 mg/dL (<200); Estimated Glomerular Filt Rate > 60; Glucose Random 108 mg/dL (60-115); HDL Cholesterol 49 mg/dL (>40); LDL Cholesterol Calculated 100 mg/dL (<100); Potassium 4.4 mmol/L (3.3-5.1); Sodium 136 mmol/L (135-145); Total Protein 7.7 g/dL (6.5-8.0); Triglycerides 83 mg/dL (<150)
[2024-06-29 14:19] LABS: HBS Num1 0.33 mIU/mL (0-7.99); HBc Num1 0.11 S/CO (0.00-0.79); HBsAGNum1 0.48 S/CO (0.00-0.99); Hepatitis B Core Antibody Nonreactive (Nonreactive); Hepatitis B Surface Antigen Negative (Negative); ~HepC Num1 0.13 S/CO (0.00-0.79); ~Hepatitis B Surface Antibody NONREACTIVE (Nonreactive); ~Hepatitis C Antibody Nonreactive (Nonreactive)
[2024-06-29 14:20] LABS: TSH reflex Free T4 1.34 uIU/mL (0.32-4.0)
== END 2024-06-29 11:18 | disposition home or self-care (01) ==
LOC: HO.HMGCLDS 11:17
PROVIDERS: PCP Internal Medicine; Visit Provider Internal Medicine
DX: E87.1 Hypo-osmolality and hyponatremia (principal); I10 Essential (primary) hypertension; D64.9 Anemia, unspecified; R79.89 Other specified abnormal findings of blood chemistry
CPT/HCPCS: 36415; 80053; 80061; 84443; 85025; 86704; 86706; 86803; 87340

== ENCOUNTER 2024-07-10 10:34 | Outpatient (REF) | payer OTHER, SELFPAY ==
--- NOTE | ~2024-07-10 | US_ITS ---
EXAMINATION: US ABDOMEN LIMITED CLINICAL INFORMATION: Elevated liver function tests. COMPARISON: None available. TECHNIQUE: Real-time imaging of the right upper quadrant abdominal viscera. Limited visualization due to bowel gas. FINDINGS: PANCREAS: Limited visualization of pancreatic tail and head. Imaged portion of pancreatic body is unremarkable. LIVER: Increased hepatic parenchymal heterogeneity and echogenicity could be associated with hepatocellular disease/hepatic steatosis and substantially limits visualization. Hypoechoic areas within the liver adjacent to the gallbladder characteristic of areas of focal sparing. Correlation with liver function tests and clinical exam recommended to determine further management. GALLBLADDER: No gallstones. No gallbladder wall thickening. COMMON BILE DUCT: Normal in caliber measuring 0.4 cm in diameter. RIGHT KIDNEY: No hydronephrosis. No renal calculi. Limited visualization. The kidney measures 11.8 cm in maximum dimension. FREE FLUID: None. US/US abdomen limited IMPRESSION: Increased hepatic parenchymal heterogeneity and echogenicity could be associated with hepatocellular disease/hepatic steatosis and substantially limits visualization. Hypoechoic areas within the liver adjacent to the gallbladder characteristic of areas of focal sparing. Correlation with liver function tests and clinical exam recommended to determine further management. This study was presented today to July 10, 2024 for interpretation. Stat results provided at this time as requested by referring provider. Electronically signed by: Chapis Le MD 07/10/2024 01:13 PM KRISTIE OLIVER
== END 2024-07-10 10:35 | disposition home or self-care (01) ==
LOC: HO.HMGCX 10:34
PROVIDERS: PCP Internal Medicine; Visit Provider Internal Medicine
DX: R79.89 Other specified abnormal findings of blood chemistry (principal)
CPT/HCPCS: 76705

== ENCOUNTER 2024-08-16 11:00 | Outpatient (RCR) | payer OTHER, SELFPAY ==
--- NOTE | 2024-07-30 12:04 | MHC.PT.EP ---
[facility] [place] Office [place] Office [place] Office [address] Domenico Walker [address] [phone] F: [phone] F: [phone] F: [phone] F: [phone] Physical Therapy Plan of Care Date of Evaluation: 07/30/24 Date of Surgery: Diagnosis: B knee pain goes by Flip Assessment: 59 y/o male referred to PT with B knee pain. S/s consistent with patella tendonitis and ?pes anserine bursitis secondary to decreased hip strength, pain at B patella tendon/pes anserine, decreased muscle length of piriformis/ ITB, patella lateral tracking, and impaired squat technique resulting in pain and difficulty with stairs, walking, and running. Recommend PT 2x/week for 4 weeks to address impairments, implement HEP, and optimize functional mobility. Frequency and Duration: The patient will be seen 2x/week for 4 weeks Short Term Goals: 2 weeks I with HEP Pt will demosntrate modified figure four stretch with pain < 3/10 Per Diem Registered Nurse Goals: 4 weeks I with HEP and self management of sx Pt will be able to ascend/ descend stairs in step through pattern with pain < 3/10 Pt will have initiated walking program with pain < 3/10 Treatment Plan: Modalities to reduce pain, spasms and effusion. Manual therapy to restore motion and function. Therapeutic exercise to improve strength and flexibility. Neuromuscular re-education for posture and balance. Therapeutic activities to return to functional activities of daily living. Electronically signed by: Brinda Redman PT Please sign and return to therapist. Thank you for your referral.
--- NOTE | 2024-09-10 13:30 | MHC.PT.DC ---
[facility] [place] Office [place] Office [place] Office [address] Domenico Walker [address] [phone] F: [phone] F: [phone] F: [phone] F: [phone] Physical Therapy Discharge Report Diagnosis: B knee pain goes by Flip Date of Surgery: Date of Evaluation: 07/30/24 Date of Discharge: 09/10/24 Treatments to Date: 4 Cancellations to Date: 3 No Shows to Date: 1 Discharge Status: Improved Function Independent with HEP Visit Non-compliance Discharge Summary: Pt was making gradual improvement and I with HEP at time of last attended visit. He still had not returned to running which was one of his goals. At this time he is d/c secondary cancellations and not f/u with further appointments. Electronically signed by: Brinda Redman PT Please sign and return to therapist. Thank you for your referral.
== END 2024-09-10 13:30 | disposition home or self-care (01) ==
LOC: HO.PTCHIC 11:00
PROVIDERS: PCP Internal Medicine; Visit Provider Internal Medicine
DX: M25.561 Pain in right knee (principal); M25.562 Pain in left knee
CPT/HCPCS: 97110; 97140; 97161

== ENCOUNTER 2025-01-01 11:35 | Outpatient (AMB) | payer OTHER, SELFPAY ==
[2025-01-01 11:53] VITALS: BP 134/80; PULSE 88; RESP 18; TEMP 36.7; O2SAT 98; BMI 28.7
--- NOTE | 2025-01-01 11:53 | MHC.PC.OV ---
Vital Signs 01/01/25 11:53 Height 6 ft Weight 212 lb BMI 28.7 BP 134/80 Blood Pressure Location Lt brachial Position Sitting Respiration 18 Pulse 88 Pulse Source Pulse Oximeter Temp 98.1 F Temp Source Oral Pulse Oximetry (%) 98 Oxygen Delivery Method Room Air Intake Visit Reasons: Med. Review Intake Note: Pt is here today for a follow up visit. Allergies No Known Allergies Allergy (Verified 01/01/25 11:54) Medication List - Last Reconciled 01/01/25 by Alla Sorto MD amlodipine 10 mg PO DAILY clobetasol 0.05% 1 appl topical DAILY mirtazapine 30 mg PO DAILY omeprazole 40 mg PO DAILY vardenafil 20 mg PO DAILY Tobacco use date assessed: 01/01/25 Dental Screening Dental Screen Date: 01/01/25 Did you have a dental visit in the last 12 months?: No Did you have a dental problem in the last 6 months where you did not have access to dental care?: Yes Was dental information given to patient?: Yes HPI Med. Review HPI Details Patient presents for the follow-up. Hypertension is controlled on amlodipine. He complains bilateral elbow pain worse when using his arms. Patient has been working on in the gym, lifting weights daily for the last 2 months. [facility] Medical History (Updated 01/01/25 @ 12:46 by Alla Sorto MD) HTN (hypertension) Difficulty sleeping Depression, major, recurrent Acne vulgaris LFT elevation Hypertension, essential Ulcerative colitis Surgical History No pertinent past surgical history Family History Father Alzheimer's disease Dementia Stroke Mother No problems noted. Sister No problems noted. 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 1. Little interest or pleasure in doing things: not at all 2. Feeling down, depressed, or hopeless: not at all 3. Trouble falling or staying asleep, or sleeping too much: not at all 4. Feeling tired or having little energy: not at all 5. Poor appetite or overeating: not at all 6. Feeling bad about yourself - or that you are a failure or have let yourself or your family down: not at all 7. Trouble concentrating on things, such as reading the newspaper or watching television: not at all 8. Moving or speaking so slowly that other people could have noticed. Or the opposite - being so fidgety or restless that you have been moving around a lot more than usual: not at all 9. Thoughts that you would be better off or of hurting yourself in some way: not at all Total score: 0 Depression Screening Interpretation: Negative Depression Screening Done: Yes 39488 - PHQ-9 Billing: Yes Source: Developed by Drs. Gerry Cabrales, Lexy Meade, Bob Yun and colleagues, with an educational flavia from [employer]. Thrive Questionnaire Date Thrive assessed: 01/01/25 I am a: Patient What is your living situation today?: I choose not to answer this question Within the past 12 months, did the food you bought not last and you didn't have the money to get more?: I choose not to answer this question Within the past 12 months, did you worry whether your food would run out before you got money to buy more?: I choose not to answer this question Do you have trouble paying for medicines?: I choose not to answer this question Do you have trouble getting transportation to medical appointments?: I choose not to answer this question Do you have trouble paying your heating and electricity bill?: I choose not to answer this question Do you have trouble taking care of your child, family member or friend?: I choose not to answer this question Do you have trouble with day-to-day activities such as bathing, preparing meals, shopping, managing finances, etc.?: I choose not to answer this question Are you currently unemployed and looking for a job?: I choose not to answer this question Are you interested in more education?: I choose not to answer this question Please select the resources that you would like help with: None Currently or been in a relationship where the following occur: I choose not to answer THRIVE Score: 0 PILI-7 AMB Questionnaire PILI-7 Date PILI - 7 assessed: 03/16/24 Feeling nervous, anxious, or on edge: 0 = Not at all Not being able to stop or control worryin = Not at all Worrying too much about different things: 0 = Not at all Trouble relaxin = Not at all Being so restless that it is hard to sit still: 0 = Not at all Becoming easily annoyed or irritable: 0 = Not at all Feeling afraid as if something awful might happen: 0 = Not at all Total PILI-7 score (0-4 normal; 5-9 mild; 10-14 moderate; 15-21 severe): 0 Source: Developed by Drs. Gerry Cabrales, Lexy Meade, Bob Yun and colleagues, with an educational flavia from [employer]. PILI-7 Assessment Billing PILI-7 Assessment Tool: PILI-7 Assessment 91628 Review of Systems Const All systems reviewed & are unremarkable except as noted in HPI and below Eyes Reports no additional complaints ENT Reports no additional complaints Card Reports no additional complaints Resp Reports no additional complaints GI Reports no additional complaints Reports no additional complaints Physical exam (Primary Care) Vital Signs: Last Vital Signs Temp 98.1 F 01/01/25 11:53 Pulse 88 01/01/25 11:53 Resp 18 01/01/25 11:53 BP 134/80 01/01/25 11:53 Pulse Ox 98 01/01/25 11:53 Oxygen Delivery Method Room Air 01/01/25 11:53 BMI result Body Mass Index 28.7 Tobacco/Smoking Status: Tobacco use Status Tobacco use date assessed 01/01/25 01/01/25 11:56 Patient Tobacco Use Status Never used Tobacco 01/01/25 11:56 e-Cigarette/Vaping Use Never Used 01/01/25 11:56 PHQ-9: PHQ-9 Score PHQ-9: Total score 0 01/01/25 11:58 Depression Screening Interpretation: Negative Thrive Assessment: Date of Thrive Assessment Date Thrive assessed 01/01/25 01/01/25 11:58 Currently or been in a relationship where the following occur: I choose not to answer Const General: no acute distress HENMT Head: Yes normal to inspection Neck Neck: Yes supple Resp Effort & Inspection: normal respiratory effort Auscultation: clear to auscultation bilaterally Cardio Rhythm: regular rhythm Heart sounds: S1 normal heart sound present and S2 normal heart sound present Extrem Other: Tenderness in both lateral epicondyle, decreased range of motion of both elbows, no soft tissue swelling erythema Coding Level of Care Code Est Pt Level 4 (04958) Diagnoses Ulcerative colitis K51.90 HTN (hypertension) I10 Bilateral tennis elbow M77.11; M77.12 Depression, major, recurrent F33.9 Additional Codes PILI-7 Assessment Billing - PILI-7 Assessment Tool: PILI-7 Assessment 06998 ([id number]) PHQ-9 - 19556 - PHQ-9 Billing: Yes ([id number]) Assessment & Plan Assessment & Plan (1) Ulcerative colitis: Comment: Dr. Jerez, colonoscopy 08/2022, mild diffuse colitis started Humira 09/24, in remission Code(s): K51.90 - Ulcerative colitis, unspecified, without complications Category: Medical Plan: In remission established with GI (2) HTN (hypertension): Code(s): I10 - Essential (primary) hypertension Category: Medical Plan: Continue amlodipine return for physical in 5 months with a fasting labs before (3) Bilateral tennis elbow: Code(s): M77.11 - Lateral epicondylitis, right elbow; M77.12 - Lateral epicondylitis, left elbow Category: Medical Plan: Referred for physical therapy (4) Depression, major, recurrent: Comment: controlled Mirtazapine Code(s): F33.9 - Major depressive disorder, recurrent, unspecified Category: Medical Plan: Controlled on mirtazapine Orders: Orders PT Evaluation and Treatment Today M77.11 - Lateral epicondylitis, right elbow, M77.12 - Lateral epicondylitis, left elbow Lipid Panel 5 Months I10 - Essential (primary) hypertension, K51.90 - Ulcerative colitis, unspecified, without complications, R79.89 - Other specified abnormal findings of blood chemistry, Z00.00 - Encounter for general adult medical examination without abnormal findings PSA,Total (Free>4and<10) 5 Months I10 - Essential (primary) hypertension, K51.90 - Ulcerative colitis, unspecified, without complications, R79.89 - Other specified abnormal findings of blood chemistry, Z00.00 - Encounter for general adult medical examination without abnormal findings UA w Microscopic 5 Months I10 - Essential (primary) hypertension, K51.90 - Ulcerative colitis, unspecified, without complications, R79.89 - Other specified abnormal findings of blood chemistry, Z00.00 - Encounter for general adult medical examination without abnormal findings IRON PROFILE 5 Months D64.9 - Anemia, unspecified, E87.1 - Hypo-osmolality and hyponatremia Vitamin B12 and Folate 5 Months D64.9 - Anemia, unspecified, E87.1 - Hypo-osmolality and hyponatremia Comprehensive [place]. Panel Fast 5 Months I10 - Essential (primary) hypertension, K51.90 - Ulcerative colitis, unspecified, without complications, R79.89 - Other specified abnormal findings of blood chemistry, Z00.00 - Encounter for general adult medical examination without abnormal findings Complete Blood Count Auto Diff 5 Months I10 - Essential (primary) hypertension, K51.90 - Ulcerative colitis, unspecified, without complications, R79.89 - Other specified abnormal findings of blood chemistry, Z00.00 - Encounter for general adult medical examination without abnormal findings TSH reflex Free T4 5 Months I10 - Essential (primary) hypertension, K51.90 - Ulcerative colitis, unspecified, without complications, R79.89 - Other specified abnormal findings of blood chemistry, Z00.00 - Encounter for general adult medical examination without abnormal findings Ferritin 5 Months D64.9 - Anemia, unspecified, E87.1 - Hypo-osmolality and hyponatremia Vitamin D 25-OH (D2 and D3) 5 Months D64.9 - Anemia, unspecified, E87.1 - Hypo-osmolality and hyponatremia Medications: Refilled vardenafil 20 mg PO DAILY 30 tabs 2RF vardenafil 20 mg PO DAILY 100 tabs 0RF
--- OUTSIDE RECORDS SUMMARY | 2025-01-01 13:12 | XMS_ITS | Clinical Summary ---
Author Organization [facility] it Address [address] [place] [address] Care Team Providers Care [employer] Principal Name Role Phone Unavailable Primary Care Provider Unavailabl e Medications Humira,CF, Pen 40 mg/0.4 mL penIndications :Ulcerative colitis (CMS/HCC V24, CMS/HCC V28) Inject 1 pen (40mg) subcutaneously every two weeks 2 each 2 5 Active Social History Tobacco Use Types Packs/Day Years Used Date Smoking Tobacco: Never Assessed Sex and Gender Information Value Date Recorded Sex Assigned at Not on file Legal Sex Male 9:16 PM EST Gender Identity Not on file Sexual Orientation Not on file Plan of Treatment Health Maintenance Due Date Last Done Comments COVID-19 Vaccine (#1) 1968 DTaP,Tdap,and Td Vaccines (1 - Tdap) 1982 Pneumococcal Vaccine: 50+ Ye ars (1 of 1 - PCV) 2013 Zoster Vaccines (1 of 2) 2013 Cholesterol Screening (Lipid Panel) 07/03/2022 Colorectal Cancer Screening: Colonoscopy 07/03/2022 Depression Screening 07/03/2022 HIV Screening 07/03/2022 Hepatitis C Screening 07/03/2022 Social Influencers of Health Screening 07/03/2022 Influenza Vaccine (Season Ended) 2025 RSV Immunization Adult Patie nts (1 - 1-dose 75+ series) 2038 HIB Vaccines Aged Out No longer eligi ble based on patient's age to complete this topic HPV Vaccines Aged Out No longer eligi ble based on patient's age to complete this topic Hepatitis A Vaccines Aged Out No long er eligible based on patient's age to complete this topic Hepatitis B Vaccines Aged Out No long er eligible based on patient's age to complete this topic IPV Vaccines Aged Out No longer eligi ble based on patient's age to complete this topic MMR Vaccines Aged Out No longer eligi ble based on patient's age to complete this topic Meningococcal ACWY Vaccine Aged Out N o longer eligible based on patient's age to complete this topic Meningococcal B Vaccine Aged Out No l onger eligible based on patient's age to complete this topic Pneumococcal Vaccine: Pediat rics (0 to 5 Years) and At-Risk Patients (6 to 64 Years) Aged Out No longer eligible b ased on patient's age to complete this topic RSV Immunization Patients Un deonte 20 months Aged Out No longer eligible b ased on patient's age to complete this topic Varicella Vaccines Aged Out No longer eligible based on patient's age to complete this topic
== END 2025-01-01 12:37 | disposition home or self-care (01) ==
LOC: HO.HMCC 11:36
PROVIDERS: PCP Internal Medicine; Visit Provider Internal Medicine
DX: K51.90 Ulcerative colitis, unspecified, without complications (principal); I10 Essential (primary) hypertension; M77.11 Lateral epicondylitis, right elbow; M77.12 Lateral epicondylitis, left elbow; F33.9 Major depressive disorder, recurrent, unspecified

== ENCOUNTER → 2025-01-01 11:35 | Outpatient (BNVA) | payer OTHER, SELFPAY | PROVIDERS: PCP Internal Medicine; Visit Provider Internal Medicine | DX: I10 Essential (primary) hypertension (principal); K51.90 Ulcerative colitis, unspecified, without complications; M77.11 Lateral epicondylitis, right elbow; M77.12 Lateral epicondylitis, left elbow; F33.9 Major depressive disorder, recurrent, unspecified; D64.9 Anemia, unspecified; E87.1 Hypo-osmolality and hyponatremia; Z79.899 Other long term (current) drug therapy | CPT/HCPCS: 96127; 99212 ==

== ENCOUNTER 2025-06-13 12:11 | Outpatient (AMB) | payer OTHER, SELFPAY ==
--- NOTE | 2025-06-13 12:18 | A.OFFPC_ITS ---
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 Accompanied by: Self / Same As Patient Allergies No Known Allergies Allergy (Verified 06/13/25 12:22) Medication List - Last Reconciled 06/13/25 by Alla Sorto MD amlodipine 10 mg PO DAILY clobetasol 0.05% 1 appl topical DAILY mirtazapine 30 mg PO DAILY omeprazole 40 mg PO DAILY tadalafil (Cialis) 20 mg PO DAILY vardenafil 20 mg PO DAILY Tobacco use date assessed: 06/13/25 Dental Screening Dental Screen Date: 06/13/25 Did you have a dental visit in the last 12 months?: Yes Did you have a dental problem in the last 6 months where you did not have access to dental care?: No Was dental information given to patient?: Patient has dentist HPI Annual PE 2 HPI Details Pt presents for PE. Patient complains of increased nocturnal urination up to 3 times at night. He reports sensation of non complete emptying of the bladder. Patient was evaluated by urologist a few years ago who recommended TURP but patient was not interested. [facility] Medical History (Updated 06/13/25 @ 15:27 by Alla Sorto MD) Anemia BPH (benign prostatic hyperplasia) Hyponatremia HTN (hypertension) Difficulty sleeping Depression, major, recurrent Acne vulgaris LFT elevation Hypertension, essential Ulcerative colitis Surgical History No pertinent past surgical history Family History Father Alzheimer's disease Dementia Stroke Mother No problems noted. Sister No problems noted. 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 1. Little interest or pleasure in doing things: not at all 2. Feeling down, depressed, or hopeless: not at all 3. Trouble falling or staying asleep, or sleeping too much: not at all 4. Feeling tired or having little energy: not at all 5. Poor appetite or overeating: not at all 6. Feeling bad about yourself - or that you are a failure or have let yourself or your family down: not at all 7. Trouble concentrating on things, such as reading the newspaper or watching television: not at all 8. Moving or speaking so slowly that other people could have noticed. Or the opposite - being so fidgety or restless that you have been moving around a lot more than usual: not at all 9. Thoughts that you would be better off or of hurting yourself in some way: not at all Total score: 0 Depression Screening Interpretation: Negative Depression Screening Done: Yes [id number] - PHQ-9 Billing: Yes Source: Developed by Drs. Gerry Cabrales, Lexy Meade, Bob Yun and colleagues, with an educational flavia from [employer] Thrive Questionnaire Date Thrive assessed: 10/31/24 I am a: Patient What is your living situation today?: I choose not to answer this question Within the past 12 months, did the food you bought not last and you didn't have the money to get more?: I choose not to answer this question Within the past 12 months, did you worry whether your food would run out before you got money to buy more?: I choose not to answer this question Do you have trouble paying for medicines?: I choose not to answer this question Do you have trouble getting transportation to medical appointments?: I choose not to answer this question Do you have trouble paying your heating and electricity bill?: I choose not to answer this question Do you have trouble taking care of your child, family member or friend?: I choose not to answer this question Do you have trouble with day-to-day activities such as bathing, preparing meals, shopping, managing finances, etc.?: I choose not to answer this question Are you currently unemployed and looking for a job?: I choose not to answer this question Are you interested in more education?: I choose not to answer this question Please select the resources that you would like help with: None Currently or been in a relationship where the following occur: I choose not to answer THRIVE Score: 0 PILI-7 AMB Questionnaire PILI-7 Date PILI - 7 assessed: 06/13/25 Feeling nervous, anxious, or on edge: 0 = Not at all Not being able to stop or control worryin = Not at all Worrying too much about different things: 0 = Not at all Trouble relaxin = Not at all Being so restless that it is hard to sit still: 0 = Not at all Becoming easily annoyed or irritable: 0 = Not at all Feeling afraid as if something awful might happen: 0 = Not at all Total PILI-7 score (0-4 normal; 5-9 mild; 10-14 moderate; 15-21 severe): 0 Source: Developed by Drs. Gerry Cabrales, Lexy Meade, Bob Yun and colleagues, with an educational flavia from [employer] PILI-7 Assessment Billing PILI-7 Assessment Tool: PILI-7 Assessment 56621 Review of Systems Const All systems reviewed & are unremarkable except as noted in HPI and below Eyes Reports no additional complaints ENT Reports no additional complaints Card Reports no additional complaints Resp Reports no additional complaints GI Reports no additional complaints Reports no additional complaints Musc Reports no additional complaints Physical exam (Primary Care) Vital Signs: Last Vital Signs Temp 97.5 F 06/13/25 12:19 Pulse 80 06/13/25 12:19 Resp 16 06/13/25 12:19 BP 145/88 H 06/13/25 13:20 Pulse Ox 96 06/13/25 12:19 Oxygen Delivery Method Room Air 06/13/25 12:19 BMI result Body Mass Index 28.9 Tobacco/Smoking Status: Tobacco use Status Tobacco use date assessed 06/13/25 06/13/25 12:23 Patient Tobacco Use Status Never used Tobacco 06/13/25 12:23 e-Cigarette/Vaping Use Never Used 06/13/25 12:23 PHQ-9: PHQ-9 Score PHQ-9: Total score 0 06/13/25 12:38 Depression Screening Interpretation: Negative Thrive Assessment: Date of Thrive Assessment Date Thrive assessed 10/31/24 06/13/25 12:23 Currently or been in a relationship where the following occur: I choose not to answer Const General: no acute distress HENMT Head: Yes normal to inspection Ears: TM's normal bilaterally Face and sinus: Yes normal facial exam Mouth: Normal oral and palatal mucosa present Eyes General: appearance normal, both eyes and all related structures Neck Neck: Yes no lymphadenopathy and Yes supple Resp Effort & Inspection: normal respiratory effort Auscultation: clear to auscultation bilaterally Cardio Rhythm: regular rhythm Heart sounds: S1 normal heart sound present and S2 normal heart sound present GI Inspection: Yes normal to inspection Palpation (GI): Soft to palpation Percussion: Yes normal to percussion Auscultation: normal bowel sounds Coding Level of Care Code Est Pt Prev Care 40-64y(61112) Diagnoses BPH (benign prostatic hyperplasia) N40.0 Hypertension, essential I10 Annual physical exam Z00.00 Additional Codes PILI-7 Assessment Billing - PILI-7 Assessment Tool: PILI-7 Assessment 91818 ([id number]) PHQ-9 - 65026 - PHQ-9 Billing: Yes ([id number]) Assessment & Plan Assessment & Plan (1) BPH (benign prostatic hyperplasia): Comment: Evaluated by urology in the past declined TURP Code(s): N40.0 - Benign prostatic hyperplasia without lower urinary tract symptoms Category: Medical Plan: Check PSA and start on finasteride. bladder scan will be obtained and if there is significant urinary retention he will start tamsulosin (2) Hypertension, essential: Code(s): I10 - Essential (primary) hypertension Category: Medical Plan: Add valsartan 80 mg to amlodipine. Low-sodium diet regular physical activity weight loss discussed with the patient (3) Annual physical exam: Code(s): Z00.00 - Encounter for general adult medical examination without abnormal findings Category: Medical Plan: Well-balanced diet regular physical activity discussed with the patient he is established with GI for ulcerative colitis in remission Orders: Orders UA w Microscopic Today I10 - Essential (primary) hypertension, Z00.00 - Encounter for general adult medical examination without abnormal findings Comprehensive [place]. Panel Fast Today I10 - Essential (primary) hypertension, Z00.00 - Encounter for general adult medical examination without abnormal findings Complete Blood Count Auto Diff Today I10 - Essential (primary) hypertension, Z00.00 - Encounter for general adult medical examination without abnormal findings Lipid Panel Today I10 - Essential (primary) hypertension, Z00.00 - Encounter for general adult medical examination without abnormal findings TSH reflex Free T4 Today I10 - Essential (primary) hypertension, Z00.00 - Encounter for general adult medical examination without abnormal findings US bladder Today I10 - Essential (primary) hypertension, N40.0 - Benign prostatic hyperplasia without lower urinary tract symptoms, Z00.00 - Encounter for general adult medical examination without abnormal findings Medications: New finasteride 5 mg PO DAILY 90 tabs 0RF valsartan 80 mg PO DAILY 30 tabs 2RF
[2025-06-13 12:19] VITALS: BP 144/96; PULSE 80; RESP 16; TEMP 36.4; O2SAT 96; BMI 28.9
[2025-06-13 13:20] VITALS: BP 145/88
--- OUTSIDE RECORDS SUMMARY | 2025-06-13 15:24 | XMS_ITS | Clinical Summary ---
Author Organization [facility] it Address [address] [place] [address] Care Team Providers Care Dental Coordinator Name Role Phone Unavailable Primary Care Provider Unavailabl e Medications Humira,CF, Pen 40 mg/0.4 mL penIndications :Ulcerative colitis (CMS/HCC V24, CMS/HCC V28) Inject 1 pen (40mg) subcutaneously every two weeks 2 each 2 Active Social History Tobacco Use Types Packs/Day Years Used Date Smoking Tobacco: Never Assessed Sex and Gender Information Value Date Recorded Sex Assigned at Not on file Legal Sex Male 9:16 PM EST Gender Identity Not on file Sexual Orientation Not on file Plan of Treatment Health Maintenance Due Date Last Done Comments Colorectal Cancer Screening: Colonoscopy 1963 DTaP,Tdap,and Td Vaccines (1 - Tdap) 1982 Pneumococcal Vaccine: 50+ Ye ars (1 of 1 - PCV) 2013 Zoster Vaccines (1 of 2) 2013 Cholesterol Screening (Lipid Panel) 07/03/2022 HIV Screening 07/03/2022 Hepatitis C Screening 07/03/2022 Social Influencers of Health Screening 07/03/2022 Depression Screening 08/01/2024 COVID-19 Vaccine (1 - 2024-2 6 season) 2025 Influenza Vaccine (#1) 2025 RSV Immunization Adult Patie nts (1 [...]
== END 2025-06-13 15:30 | disposition home or self-care (01) ==
LOC: HO.HMCC 12:12
PROVIDERS: PCP Internal Medicine; Visit Provider Internal Medicine
DX: Z00.00 Encounter for general adult medical examination without abnormal findings (principal); N40.0 Benign prostatic hyperplasia without lower urinary tract symptoms; I10 Essential (primary) hypertension

== ENCOUNTER → 2025-06-13 12:11 | Outpatient (BNVA) | payer OTHER, SELFPAY | PROVIDERS: PCP Internal Medicine; Visit Provider Internal Medicine | DX: Z00.00 Encounter for general adult medical examination without abnormal findings (principal); I10 Essential (primary) hypertension; N40.0 Benign prostatic hyperplasia without lower urinary tract symptoms | CPT/HCPCS: 96127; 99396 ==